=== PATIENT | female | born 1985 | race Caucasian/White ===

== ENCOUNTER 2025-07-25 06:42 | Outpatient (CLI) | payer BC, SELFPAY ==
--- OUTSIDE RECORDS SUMMARY | 2025-07-04 23:59 | XMS_ITS | Continuity of Care Document ---
Author Organization [facility] Address [address] [place] [address]- Care Team Providers Care Sld Educational Aide Name Role Phone JOSEPHINE DELUNA Primary Care Physician Encounter [facility] [id number] Date(s): 07/04/25 - 07/04/[address] [address]- [place] Discharge Disposition: OP Self Care or Home Attending Physician: KRUNAL PATEL NP-FAM Admitting Physician: KRUNAL PATEL NP-FAM Referring Physician: KRUNAL PATEL NP-FAM Encounter Type: Outpatient S Assessment and Plan Diagnostic Tests Pending * CAMP Enhanced Liver Fibrosis (ELF) Score - [facility] 07/04/25 Results Laboratory List Name Date CBC w/ Auto Diff 07/04/25 CMP Comprehensive Metabolic Panel 07/04/25 Hepatitis Acute Panel 07/04/25 .Automated Differential 07/04/25 Most recent to oldest [Reference Range]: 1 eGFR [>=60 mL/min/1.73m2] 92 mL/min/1.73 m2 1 (07/04/25 12:44 PM) Sodium Level [136-145 mmol/L] 135 mmol/L *LOW* (07/04/25 12:44 PM) Potassium Level [3.5-5.1 mmol/L] 3.6 mmo l/L (07/04/25 12:44 PM) Chloride Level [98-110 mmol/L] 102 mmol/ L (07/04/25 12:44 PM) Carbon Dioxide Level [21-31 mmol/L] 24 m mol/L (07/04/25 12:44 PM) Anion Gap [2.0-11.0] 9.0 (07/04/25:44 PM) WBC [4.0-10.8 x10(3)/uL] 7.4 x10(3)/uL (07/04/25 12:44 PM) RBC [3.77-5.16 x10(6)/uL] 4.64 x10(6)/uL (07/04/25 12:44 PM) Hct [35.0-45.0 %] 40.8 % (07/04/25:44 PM) Hgb [12.0-16.0 Gram/dL] 13.6 Gram/dL (07/04/25:44 PM) Platelet Count [140-420 x10(3)/uL] 333 x 10(3)/uL (07/04/25:44 PM) MCH [25.6-32.2 pg] 29.2 pg (07/04/25:44 PM) MCHC [32.3-36.5 Gram/dL] 33.2 Gram/dL (07/04/25:44 PM) MCV [79.4-94.8 fL] 87.8 fL (07/04/25:44 PM) Bilirubin Total [0.3-1.0 mg/dL] 0.4 mg/d L (07/04/25: PM) A/G Ratio [1.0-2.5] 1.4 (07/04/25:44 PM) ALT [<=24 Units/Liter] 21 Units/Liter (07/04/25:44 PM) AST [13-39 Units/Liter] 24 Units/Liter (07/04/25 12:44 PM) Globulin [2.0-3.5 Gram/dL] 3.1 Gram/dL (07/04/25:44 PM) Alk Phos [34-104 Units/Liter] 117 Units/ Liter *HI* (07/04/25 12:44 PM) Bun/Creatinine [6.0-22.0] 13.3 (07/04/25 12:44 PM) Calcium Level [8.6-10.2 mg/dL] 8.9 mg/dL (8/5/25 12:44 PM) Glucose Level [74-109 mg/dL] 77 mg/dL (07/04/25 12:44 PM) Hep C AB [Nonreactive] Nonreactive (07/04/25 12:44 PM) Blood Urea Nitrogen [7-25 mg/dL] 11 mg/d L (07/04/25 12:44 PM) Slide Review None *NA* (07/04/25 12:44 PM) Eos % [0.0-7.0 %] 1.7 % (07/04/25 12:44 PM) Sumner # [0.0-1.0 x10(3)/uL] 0.5 x10(3)/uL (07/04/25 12:44 PM) Eos # [0.0-0.7 x10(3)/uL] 0.1 x10(3)/uL (07/04/25 12:44 PM) Sumner % [2.0-12.0 %] 6.9 % (07/04/25 12:44 PM) Baso % [0.0-3.0 %] 0.9 % (07/04/25 12:44 PM) Hep B Surf AG [Nonreactive] Nonreactive (07/04/25 12:44 PM) Baso # [0.0-0.3 x10(3)/uL] 0.1 x10(3)/uL (07/04/25 12:44 PM) RDW [11.0-15.5 %] 13.5 % (07/04/25 12:44 PM) Neut % [34.0-75.0 %] 65.3 % (07/04/25 12:44 PM) Protein Total [6.4-8.9 Gram/dL] 7.5 Gram /dL (07/04/25 12:44 PM) Neut # [1.5-7.1 x10(3)/uL] 4.8 x10(3)/uL (07/04/25 12:44 PM) Albumin Level [3.5-5.2 Gram/dL] 4.4 Gram /dL (07/04/25 12:44 PM) Lymph % [17.0-53.0 %] 25.2 % (07/04/25 12:44 PM) Hep B Core AB IgM [Nonreactive] Nonreact watson (07/04/25 12:44 PM) Hep A IgM AB [Nonreactive] Nonreactive (07/04/25 12:44 PM) Lymph # [1.0-3.5 x10(3)/uL] 1.9 x10(3)/u L (07/04/25 12:44 PM) MPV [8.7-12.0 fL] 7.1 fL *LOW* (07/04/25 12:44 PM) Creatinine Level [0.60-1.20 mg/dL] 0.83 mg/dL (07/04/25 12:44 PM) 1Interpretive Data: eGFR calculation performed using the CKD-EPI 2020 equation (race variable excluded) Patient Care team information Care Team Personnel Name: JOSEPHINE DELUNA APRN-FAM Position: [place] Referring Provider - No Access Member Role: Primary Care Physician Address: [address] [place] [phone] Telecom: Care Team Related Persons Name: NONE, NONE
--- OUTSIDE RECORDS SUMMARY | 2025-07-10 09:00 | XMS_ITS ---
Author Organization [facility] Address [address] [place] [address] Care Team Providers Care Electroencephalogram Technologist Name Role Phone [facility] Primary Care Provider Ju Mooney [facility] [phone] REASON FOR VISIT Tuberculosis (TB) / PPD Test Medications Medication SIG (Take, Route, Frequency, Duration) Notes Start Date End Date Status Vitamin B Complex - 1 tab(s) orally once a day Active Probiotic Formula 1-250 BILLION-MG 1 cap(s) orally once a day Active Sertraline HCl 50 MG 1 tab(s) orally onc e a day Active Stahist AD 25-60 MG 1 tab(s) orally ever y 8 hours 12/20/2019 Not-Taking Desogestrel-Ethinyl Estradiol 0.15-30 MG-MCG 1 tab(s) orally once a day APRI BCP Active Flonase Allergy Relief 50 MCG/ACT as directed intranasally once a day; Duration: 30 day(s) 12/20/2019 Not-Taking Acyclovir 800 MG 1 tablet Orally 5 ti mes a day; Duration: 7 days 12/06/2024 Active Singulair 10 MG 1 tablet Orally Once a day as needed Active ZyrTEC Allergy 10 MG 1 tab(s) orally onc e a day Active Immunizations Vaccine Route Administration Date Status Comme nts PPD Aplisol ID Intradermal 07/10/2025 Administered Encounters Encounter Location Date Provider Diagnosis [facility] [address] [place] [address] 07/10/2025 Ju Cummings PPD screening test Z11.1 Assessments Encounter Date Diagnosis (ICD Code) Assessment Notes Treatment Notes Treatment Clinical Notes Section Notes 07/10/2025 PPD screening test (ICD-10 - Z11.1) Patient reports they have never had a positive ppd reaction. Plan Of Treatment Treatment Notes Assessment Notes PPD screening test Patient reports they have never had a positive ppd reaction. Next Appt Details Follow Up: Please return to the clinic within 48-72 hours during the hours of business, Reason: Progress Notes * Ludmila ALCANTARA MDOB:[birth year] (40 yo F)Acc No.[id number]:07/10/2025 Progress Notes Patient: Ludmila GARDNER Provider: Juan Cummings APRN :1985 A ge:40 Y S ex:Female Date:07/10/2025 External Visit ID:[id number] Address:[address] [place] [address] [id number] Pcp:[facility] Subjective: * Chief Complaints: * 1 . Tuberculosis (TB) / PPD Test. * Medical History: * Medications: T aking Singulair 10 MG Tablet 1 tablet Orally Once a day , Notes to Pharmacist: as needed, Taking ZyrTEC Allergy 10 MG Tablet 1 tab(s) orally once a day , Taking Desogestrel-Ethinyl Estradiol 0.15-30 MG-MCG Tablet 1 tab(s) orally once a day , Notes to Pharmacist: ANGELESI BCP, Taking Vitamin B Complex - Tablet 1 tab(s) orally once a day , Taking Probiotic Formula 1-250 BILLION-MG Capsule 1 cap(s) orally once a day , Taking Sertraline HCl 50 MG Tablet 1 tab(s) orally once a day , Taking Acyclovir 800 MG Tablet 1 tablet Orally 5 times a day , Not-Taking Stahist AD 25-60 MG Tablet 1 tab(s) orally every 8 hours , Not-Taking Flonase Allergy Relief 50 MCG/ACT Suspension as directed intranasally once a day Objective: * Vitals: Assessment: * Assessment: 1. P PD screening test - Z11.1 (Primary) Plan: * Treatment: * Immunizations: PPD Aplisol : 0.1 mL (Dose No:1) (Route: Intradermal) given by Ju Cummings APRN on Right Lower Forearm (PPD screening test) * Procedure Codes: 8 6580 TB SKIN TEST (APLISOL) * Follow Up: P lease return to the clinic within 48-72 hours during the hours of business * Billing Information: * Visit Code: * Procedure Codes: 87005 TB SKIN TEST (APLISOL). Care Plan Details* Images * 07/10/25 DL & INS 07/10/25 DL & INS * Sign off status: Completed true * Provider: Juan Cummings APRN Date: 07/10/2025 Generated for Bhavesh kim/Matthew/Jesiitting on: 0 07/25/2025 05:44 AM CDT
--- OUTSIDE RECORDS SUMMARY | 2025-07-12 12:00 | XMS_ITS ---
Author Organization [facility] Address [address] [place] [address] Care Team Providers Care Triage Clinician Name Role Phone [facility] Primary Care Provider Arlin Gutierres Unavailable [phone] REASON FOR VISIT Tuberculosis (TB) / PPD Test Encounters Encounter Location Date Provider Diagnosis [facility] [address] [place] [address] 07/12/2025 Arlin Cristina PPD screening test Z11.1 Assessments Encounter Date Diagnosis (ICD Code) Assessment Notes Treatment Notes Treatment Clinical Notes Section Notes 07/12/2025 PPD screening test (ICD-10 - Z11.1) Document patient's PPD results in their immunization history and import PPD results from the right chart panel (ICW). Scan PPD result form into patient's chart. Plan Of Treatment Next Appt Details Follow Up: As needed, Reason : Progress Notes * Ludmila ALCANTARA MDOB:[birth year] (40 yo F)Acc No.[id number]:07/12/2025 Progress Notes Patient: N Ludmila GUILLERMO Provider: Saud Cristina APRN :1985 A ge:40 Y S ex:Female Date:07/12/2025 External Visit ID:[id number] Address:[id number] Pcp:[facility] Subjective: * Chief Complaints: * 1 . Tuberculosis (TB) / PPD Test. * HPI: P PD Skin Test: Patient presents for a PPD skin test read. PPD Skin Test Results I mpression N egative, I nduration 0 mm, D ate 0 07/12/2025. * ROS: C ONSTITUTIONAL: feels well y es. * Medical History: Objective: * Vitals: * Examination: F ocused Exam: GENERAL: a lert and oriented x 4, no acute distress, dress appropriate for the environment & temp, well-groomed, appears well. Assessment: * Assessment: 1. P PD screening test - Z11.1 (Primary) Plan: * Treatment: * Immunizations: PPD Aplisol (READING) Negative, Induration: 0 mm, Placement Date: 07/10/2025, Read by: Arlin Cristina on 07/12/2025 at 6:44 PM (PPD screening test) * Follow Up: A s needed * Billing Information: * Visit Code: 62293 Office Visit, Est Pt., Level 1. * Procedure Codes: Care Plan Details* Images * id in 07.12.25 pdd results 07.12.25 * Sign off status: Completed true * Provider: Saud Cristina APRN Date: 07/12/2025 Generated for Bhavesh kim/Matthew/eTransmitting on: 07/25/2025 05:44 AM CDT History and Physical Notes * HPI (History of Present Illness) Category Sub-Category Detail Notes Category Not es PPD Skin Test PPD Skin Test Results Impression: Negative Induration: 0 mm Date: 07/12/2025 Examination Category Sub-Category Detail Notes Category Not es Focused Exam GENERAL: alert and orient ed x 4, no acute distress, dress appropriate for the environment & temp, well-groomed, appears well
--- OUTSIDE RECORDS SUMMARY | 2025-07-25 06:44 | XMS_ITS | Clinical Summary ---
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 0 Active cholecalcifero l (Vitamin D-3) 25 MCG (1000 UT) capsule Take by mouth 1 (one) time each day. Active azelastine (Astelin) 0.1 % nasal spray Administer 1 spray into each nostril 2 (two) times a day. Use in each nostril as directed 30 mL 12 4 Active Additional Information Patient not taking.Reported on 05/09/2025 Symbicort 80-4.5 MCG/ACT inhaler 4 Active Bacillus Coagulans-Inul in (Probiotic) 1-250 BILLION-MG capsule daily. Active Singulair 10 MG tablet Take 10 mg by mouth every night. Active Apri 0.15-30 MG-MCG tablet TAKE 1 TABLET BY MOUTH DAILY 84 tablet 1 5 Active triazolam (Halcion) 0.25 MG tablet 5 Active sertraline (Zoloft) 100 MG tablet TAKE 1 TABLET BY MOUTH DAILY 90 tablet 5 Active Semaglutide-We ight Management (Wegovy) 0.5 MG/0.5ML solution auto-injectorI ndications:Obe sity Inject 0.5 mL under the skin 1 (one) time per week. Indications: OBESITY 2 mL 5 Active ondansetron (Zofran) 4 MG tablet Take 1 tablet by mouth every 8 (eight) hours if needed for nausea or vomiting. 20 tablet 5 Active ondansetron (Zofran) 4 MG tablet Take 4 mg by mouth every 8 (eight) hours if needed for nausea or vomiting. 07/21/20 25 Discontin ued(Reord er) Active Problems Problem Noted Date Diagnosed Date Hypertriglyceridemia 01/20/2025 Elevated blood pressure reading 01/20/2025 BMI 45 to 49.9 12/15/2024 Morbid (severe) obesity due to excess calories 0 12/15/2024 Contraception care 01/22/2022 Lymphadenopathy 10/15/2021 Chronic diarrhea 09/03/2021 Encounter for adult health aintenance examination without abnormal finding 09/03/2021 Elevated C-reactive protein (CRP) 09/03/2021 Vitamin D deficiency 02/11/2021 Diarrhea 02/11/2021 Allergic rhinitis 01/22/2018 Overview (02/11/2021): Description: (PL) Asthma 01/22/2018 Overview (02/11/2021): Description: (PL) Dyslipidemia 01/21/2018 Weight gain 01/21/2018 Anxiety 11/19/2017 Encounters Date Type Department Care Team Description 07/21/2025 Orders Only [facility] - [address] [place] [address] Tammi Edward APRN 07/04/2025 Travel 06/23/2025 Orders Only [facility] - [address] [place] [address] Tammi Edward APRN Other obesity due to excess calories (Primary Dx) 05/18/2025 Orders Only [facility] - [address] [place] [address] Tammi Edward APRN Hepatomegaly (Primary Dx); Cholelithiasis without obstruction 05/18/2025 Results Follow-Up [facility] - [address] [place] [address] Tammi Edward APRN US abdomen limited liver 05/11/2025 Telephone [facility] - [address] [place] [address] Tammi Edward APRN US 05/1605/10/2025 Orders Only [facility] - [address] [place] [address] Tammi Edward APRN Liver enzymes level above reference range (Primary Dx) 05/10/2025 Results Follow-Up [facility] - [address] [place] [address] Tammi Edward APRN CBC and differential, Comprehensive metabolic panel, TSH W/ REFLEX TO FREE T4, Additional followed-up results: 2 05/09/2025 1:20 PM EDT Office Visit [facility] [address] [place] [address] Tammi Edward APRN Other obesity due to excess calories (Primary Dx); Urine looks dark 05/09/2025 Travel 04/28/2025 Refill [facility] - [address] [place] [address] Tammi Edward APRN from Last 3 Months Immunizations Immunization Administration Dates Next Due Influenza MDCK, Quad PF (Flucelvax) 09/03/2021 Influenza, injectable, quadrivalent 07/31/2019 Influenza, quadrivalent PF ( fluarix, Afluria, Flulaval, Fluzone) 08/21/2020 Moderna COVID-19 MRNA Vaccin e 100 or 50mcg (Spikevax) 10/11/2021,01/25/2021,12/28/2020 Pfizer Bivalent ([id number] + Ba.4/ba.5) Covid-19 Vaccine 02/06/2023 Tdap 12/31/2012 Social History Tobacco Use Types Packs/Day Years Used Date Smoking Tobacco: Never Smokeless Tobacco: Never Tobacco Cessation:Counseling Given: Not Answered Alcohol Use Standard Drinks/Week Comments Yes 0 (1 standard drink = 0.6 oz pur e alcohol) [facility] Utilities Answer Date Recorded In the past 12 months has e [employer], [employer], or water [employer] threatened to shut off services in your home? No 01/20/2025 Overall Financial Resource Strain (CARDIA) Answe r Date Recorded How hard is it for you to pa y for the very basics like food, housing, medical care, and heating? Hard 01/20/2025 Hunger Vital Sign Answer Date Recorded Within the past 12 months, y ou worried that your food would run out before you got the money to buy more. Never true 01/20/20 25 Within the past 12 months, t he food you bought just didn't last and you didn't have money to get more. Never true 01/20/2025 PRAPARE - Transportation Answer Date Re corded In the past 12 months, has l ack of transportation kept you from medical appointments or from getting medications? No 01/01 In the past 12 months, has l ack of transportation kept you from meetings, work, or from getting things needed for daily living? No 01/20/2025 Housing Stability Vital Sign Answer Ulices e Recorded In the last 12 months, was t here a time when you were not able to pay the mortgage or rent on time? Yes 01/20/2025 In the past 12 months, how m any times have you moved where you were living? 1 01/20/2025 At any time in the [facility], were you homeless or living in a care home (including now)? No 01/20/2025 Depression Answer Date Recorded PHQ-2 Total Score 2 01/20/2025 Interpersonal Safety Answer Date Record ed How often does anyone, delmi heike family and friends, physically hurt you? Never 01/20/2025 How often does anyone, abelkajal heike family and friends, threaten you with harm? Never 01/20/2025 Education Answer Date Recorded What is the highest level of school you have completed or the highest degree you have received? 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 Not on file Not on file Last Filed Vital Signs Vital Sign Reading Time Taken Comments Blood Pressure 116/72 05/09/2025 1:33 PM EDT Pulse 93 05/09/2025 1:33 PM EDT Temperature 36.6 C (97.8 F) 05/09/2025 1:33 PM EDT Respiratory Rate - - Oxygen Saturation 97% 05/09/2025 1:33 PM EDT Inhaled Oxygen Concentration - - Weight 122 kg (269 lb) 05/09/2025 1:33 PM EDT Height 170.2 cm (5' 7 ) 05/09/2025 1:33 PM EDT Body Mass Index 42.13 05/09/2025 1:33 PM EDT Plan of Treatment Health Maintenance Due Date Last Done Comments HIV Screening 1987 Hepatitis B Screening 2005 Hepatitis A Vaccines (1 of 2 - Risk 2-dose series) 2006 Hepatitis B Vaccines (1 of 3 - 19+ 3-dose series) 2006 Pneumococcal Vaccine (1 of 2 - PCV) 2006 DTaP/Tdap/Td Vaccines (2 - Td or Tdap) 12/31/2022 12/31/2012 Pap Smear 08/21/2023 08/21/2020 COVID-19 Vaccine ( season) 2024 02/06/2023, 10/11/2021, 01/25/2021, Additional history exists Influenza Vaccine (#1) 2025 , 09/10/2023, 08/29/2022, Additional history exists Cervical Cancer Screening 08/21/2025 HPV/Cotest 08/21/2025 08/21/2020, 08/19/2020 Lipid Panel 01/16/2030 01/16/2025, 01/28, 10/19/2023, Additional history exists Zoster Vaccines (1 of 2) 2037 Depression Risk Screening Completed 01/20/2025 SDOH Screening Completed 01/20/2025 BMI Intervention Completed 05/09/2025, , 01/20/2025, Additional history exists Hepatitis C Screening Completed 07/04/2025 HIB Vaccines Aged Out No longer eligi ble based on patient's age to complete this topic HPV Vaccines Aged Out No longer eligi ble based on patient's age to complete this topic IPV Vaccines Aged Out No longer eligi ble based on patient's age to complete this topic MMR Vaccines Discontinued Meningococcal B Vaccine Aged Out No l onger eligible based on patient's age to complete this topic Meningococcal Vaccine Aged Out No brice holden eligible based on patient's age to complete this topic Rotavirus Vaccines Aged Out No longer eligible based on patient's age to complete this topic Varicella Vaccines Discontinued Procedures Procedure Name Priority Date/Time Associated Diagnosis Comments CAMP ENHANCED LIVER FIBROSIS (ELF) SCORE Routine 07/04/2025 12:44 PM EDT HEPATITIS PANEL, ACUTE Routine 12:44 PM EDT CMP COMPREHENSIVE METABOLIC PANEL Routine 07/04/2025 12:44 PM EDT AUTODIFF Routine 07/04/2025 12:44 PM EDT CBC AND DIFFERENTIAL Routine 07/04/2025 12:44 PM EDT US ABDOMEN LIMITED LIVER STAT 05/16/2025 8:08 AM EDT Liver enzymes level above reference range URINE CULTURE Routine 05/09/2025 3:13 PM EDT Urine looks dark POCT URINALYSIS DIPSTICK Routine 05/09/2025 2:24 PM EDT Urine looks dark AMYLASE AND LIPASE Routine 05/09/2025 2: 16 PM EDT Other obesity due to excess calories Urine looks dark TSH W/ REFLEX TO FREE T4 Routine 05/09/2025 2:16 PM EDT Other obesity due to excess calories CMP COMPREHENSIVE METABOLIC PANEL Routine 05/09/2025 2:16 PM EDT Other obesity due to excess calories CBC AND DIFFERENTIAL Routine 05/09/2025 2:16 PM EDT Other obesity due to excess calories LIPID PANEL Routine 01/16/2025 8:10 AM EST Morbid (severe) obesity due to excess calories (CMS/HCC) THINPREP TIS PAP W/REFL HOV RNA HR E6/E7, TMA Routine 08/21/2020 10:45 AM EDT from Last 3 Months or Most Recently Relevant to Health Maintenance Results * CAMP Enhanced Liver Fibrosis (ELF) Score (07/04/2025 12:44 PM EDT) ENHANCED LIVER FIBROSIS$(ELF) SCORE 7.63 <9.80 07/13/2025 1:00 AM EDT [facility] SS Comment: ELF score ranges and associated risk of disease progression (development of cirrhosis or liver-related events): < 9.80 Lower > or = 9.80 - <11.30 Mid > or = 11.30 Higher In the Mid group, the risk of disease progression is similar to the pre-test risk. Pre-test risk refers to the likelihood of disease progression in the overall intended use population without considering the ELF score. Results should always be interpreted in conjunction with the patient's medical history, clinical presentation, and other findings. ELF results > or = 7.7 may suggest the need for further specialized assessment, based on expert opinion, as noted in the AASLD 2023 NAFLD practice guidance figure 2 algorithm. Reference: Jesse TAYLOR et al. Hepatology. 202;77:1295-1382. https://doi.org/10.1097/HEP.[email or web address] For additional test details, please visit: TestDirectory.[facility] For additional NAFLD resources, please visit: [email or web address]/NAFLD Test performed by [facility] [address] [place] [address] Sky Cap: Fallon Murillo MD,PHD,SANTANA Test Reported by Julio Delcid, [facility], [address] [place] [address] Justin Richardson M.D., Ph.D., Director of Laboratories , [place] [id number] Lab test performed by: Lab Mnemonic: [facility] [address] [place], [place] Justin Richardson MD PhD Blood Venous Draw / Unknown 07/04/2025 12:44 PM EDT 07/04/2025 12:51 PM EDT [facility] - 07/13/2025 1:00 AM EDT Performed by [facility], [address] [place] [address], [place] [id number] [place] Debi Rivera NP LAB BLOOD ORDERABLES Final Res ult [facility] [address] [place] [address], [facility] Sendout Bench SS * AUTODIFF (07/04/2025 12:44 PM EDT) NEUT % 65.3 34.0 - 75.0 % 07/04/2025 12:55 PM [facility] LYMPH % 25.2 17.0 - 53.0 % 07/04/2025 12:55 PM [facility] MONO % 6.9 2.0 - 12.0 % 07/04/2025 12:55 PM [facility] EOS % 1.7 0.0 - 7.0 % 07/04/2025 12:55 PM [facility] BASO % 0.9 0.0 - 3.0 % 07/04/2025 12:55 PM [facility] NEUT # 4.8 1.5 - 7.1 x10(3)/ul 07/04/2025 12:55 PM [facility] LYMPH # 1.9 1.0 - 3.5 x10(3)/ul 07/04/2025 12:55 PM [facility] MONO # 0.5 0.0 - 1.0 x10(3)/ul 07/04/2025 12:55 PM [facility] EOS # 0.1 0.0 - 0.7 x10(3)/ul 07/04/2025 12:55 PM [facility] BASO # 0.1 0.0 - 0.3 x10(3)/ul 07/04/2025 12:55 PM EDT [facility] Blood Venous Draw / Unknown 07/04/2025 12:44 PM EDT 07/04/2025 12:51 PM EDT [facility] - 07/04/2025 12:55 PM EDT Ordered by Discern Expert. Performed by [facility], [address] [place] [address], [place] [address] Debi Rivera ORACLE DATA WAREHOUSE DEVELOPER LAB BLOOD ORDERABLES Final Res ult [facility] [address] [place] [address], [place] * Hepatitis panel, acute (07/04/2025 12:44 PM EDT) Pathologist [facility] HEP A IGM AB NONREACTIVE Nonreactive 07/04/2025 3:05 PM EDT [facility] Rem 2.0 Hepatitis B Surface Ag NONREACTIVE Nonreactive 07/04/2025 3:05 PM EDT [facility] Rem 2.0 Hep B Core IgM NONREACTIVE Nonreactive 07/04/2025 3:05 PM EDT [facility] Rem 2.0 Hep C Virus Ab NONREACTIVE Nonreactive 07/04/2025 3:05 PM EDT [facility] Rem 2.0 Blood Venous Draw / Unknown 07/04/2025 12:44 PM EDT 07/04/2025 2:25 PM EDT [facility] - 07/04/2025 3:05 PM EDT Performed by [facility], [address] [place] [address], [place] [address] Debi Rivera ORACLE DATA WAREHOUSE DEVELOPER LAB BLOOD ORDERABLES Final Res ult Performing Organization Address City/[facility]/ZIP Co de Phone Number [facility] [address] [place] [address], [facility] Rem 2.0 Pathology Department [address] [place] [address] * (ABNORMAL) CBC With Differential (07/04/2025 12:44 PM EDT) Only the most recent of2 resultswithin the time period is included. WBC 7.4 4.0 - 10.8 x10(3)/ul 07/04/2025 12:55 PM [facility] RBC 4.64 3.77 - 5.16 x10(6)/ul 07/04/2025 12:55 PM [facility] HGB 13.6 12.0 - 16.0 Gram/dL 07/04/2025 12:55 PM [facility] Hematocrit 40.8 35.0 - 45.0 % 07/04/2025 12:55 PM [facility] MCV 87.8 79.4 - 94.8 fL 07/04/2025 12:55 PM [facility] MCH 29.2 25.6 - 32.2 pg 07/04/2025 12:55 PM [facility] MCHC 33.2 32.3 - 36.5 Gram/dL 07/04/2025 12:55 PM [facility] RDW 13.5 11.0 - 15.5 % 07/04/2025 12:55 PM [facility] Platelets 333 140 - 420 x10(3)/ul 07/04/2025 12:55 PM [facility] MPV 7.1(L) 8.7 - 12.0 fL 07/04/2025 12:55 PM [facility] SLIDE REVIEW NONE 07/04/2025 12:55 PM [facility] Blood Venous Draw / Unknown 07/04/2025 12:44 PM EDT 07/04/2025 12:51 PM Health system LAB - 07/04/2025 12:55 PM EDT Performed by [facility], [address] [place], [place] [id number] us Debi Rivera NP LAB BLOOD ORDERABLES Final Res ult [facility] [address] [place] [address], * (ABNORMAL) Comprehensive metabolic panel (07/04/2025 12:44 PM EDT) Only the most recent of2 resultswithin the time period is included. Sodium 135(L) 136 - 145 mmol/L 07/04/2025 1:13 [facility] Potassium 3.6 3.5 - 5.1 mmol/L 07/04/2025 1:13 [facility] Chloride 102 98 - 110 mmol/L 07/04/2025 1:13 [facility] CO2 24 21 - 31 mmol/L 07/04/2025 1:13 [facility] Anion Gap 9.0 2.0 - 11.0 07/04/2025 1:13 [facility] Calcium 8.9 8.6 - 10.2 mg/dL 07/04/2025 1:13 [facility] Glucose 77 74 - 109 mg/dL 07/04/2025 1:13 [facility] BUN 11 7 - 25 mg/dL 07/04/2025 1:13 [facility] Creatinine 0.83 0.60 - 1.20 mg/dL 07/04/2025 1:13 [facility] BUN/Creatinine Ratio 13.3 6.0 - 22.0 07/04/2025 1:13 [facility] Albumin 4.4 3.5 - 5.2 Gram/dL 07/04/2025 1:13 [facility] Total Protein 7.5 6.4 - 8.9 Gram/dL 07/04/2025 1:13 [facility] A/G Ratio 1.4 1.0 - 2.5 07/04/2025 1:13 [facility] Alkaline Phosphatase 117(H) 34 - 104 Units/Lite r 07/04/2025 1:13 [facility] ALT (SGPT) 21 <=24 Units/Lite r 07/04/2025 1:13 [facility] AST 24 13 - 39 Units/Lite r 07/04/2025 1:13 [facility] Total Bilirubin 0.4 0.3 - 1.0 mg/dL 07/04/2025 1:13 [facility] Globulin, Total 3.1 2.0 - 3.5 Gram/dL 07/04/2025 1:13 [facility] EGFR 92 >=60 mL/min/1.7 3m2 07/04/2025 1:13 PM EDT [facility] Comment:eGFR calculation per formed using the CKD-EPI 2020 equation (race variable excluded) Blood Venous Draw / Unknown 07/04/2025 12:44 PM EDT 07/04/2025 12:51 PM EDT Narrative [facility] - 07/04/2025 1:13 PM EDT Performed by [facility], [address] [place] [address], [facility] [id number] [place] Debi Rivera [employer] WAREHOUSE DEVELOPER LAB BLOOD ORDERABLES Final Res ult [facility] [address] [place] [address], [place] * US abdomen limited liver (05/16/2025 8:08 AM EDT) Anatomical Region Laterality Modality Abdomen, Liver Ultrasound Other 05/16/2025 8:08 AM EDT Narrative 05/16/2025 8:32 AM EDT INDICATION: Elevated liver function tests COMPARISON: Abdominal ultrasound 10/21/2023 FINDINGS: PANCREAS: Visualized portions of the pancreas are within normal limits. LIVER: The liver is mildly enlarged measuring 18 cm in length. The background echogenicity echotexture is within normal limits.. No hepatic mass. The intrahepatic bile ducts are normal in caliber. The common duct is normal in size at the mann hepatis measuring 3 mm. GALLBLADDER: Shadowing gallstones are identified in the gallbladder. No gallbladder distention, gallbladder wall thickening, or pericholecystic fluid. RIGHT KIDNEY: The right kidney measures 11.2 cm. Renal cortical thickness and echogenicity is normal. No hydronephrosis. OTHER: No ascites. IMPRESSION: 1. Cholelithiasis. No ultrasound evidence of acute cholecystitis. 2. Mild hepatomegaly. Dictated by: Corazon Allen MD Signed by Corazon Allen MD on 05/16/2025 8:30 ##### Final ##### Dictated by: CORAZON ALLEN MD-RAD Dictated DT/TM: 05/16/2025 8:30 am Interpreted and electronically signed by: CORAZON ALLEN MD-RAD Signed DT/TM: 05/16/2025 8:30 am Procedure Note Corazon Allen MD - 05/16/2025 INDICATION: Elevated liver function tests COMPARISON: Abdominal ultrasound 10/21/2023 FINDINGS: PANCREAS: Visualized portions of the pancreas are within normal limits. LIVER: The liver is mildly enlarged measuring 18 cm in length. Thebackground echogenicity echotexture is within normal limits.. No hepaticmass. The intrahepatic bile ducts are normal in caliber. The common ductis normal in size at the mann hepatis measuring 3 mm. GALLBLADDER: Shadowing gallstones are identified in the gallbladder. Nogallbladder distention, gallbladder wall thickening, or pericholecysticfluid. RIGHT KIDNEY: The right kidney measures 11.2 cm. Renal cortical thicknessand echogenicity is normal. No hydronephrosis. OTHER: No ascites. IMPRESSION: 1. Cholelithiasis. No ultrasound evidence of acute cholecystitis. 2. Mild hepatomegaly. Dictated by: Corazon Allen MD Signed by Corazon Allen MD on 58:30 ##### Final ##### Dictated by: CORAZON ALLEN MD-RAD Dictated DT/TM: 05/16/2025 8:30 am Interpreted and electronically signed by: CORAZON ALLEN MD-RAD Signed DT/TM: 05/16/2025 8:30 am Tammi Edward APRN [facility] US PROCEDURES Final Result * Urine culture (clean catch) (05/09/2025 3:13 PM EDT) Urine Culture SEE NOTE [facility] Comment: CULTURE, URINE, ROUTINE Micro Number: [id number] Test Status: Final Specimen Source: Urine Specimen Quality: Adequate Result: Mixed genital joel isolated. These superficial bacteria are not indicative of a urinary tract infection. No further organism identification is warranted on this specimen. If clinically indicated, recollect clean-catch, mid-stream urine and transfer immediately to Urine Culture Transport Tube. Urine Urine specimen obtained by clean catch procedure / Unknown 05/09/2025 3:13 PM EDT 05/09/2025 8:08 PM EDT Narrative Resulting Agency Comment Performing Organization Information: Site ID: [id number] Name: [facility] Address: [address] [place], [place] [id number] Director: Orestes Restrepo Tammi Ewdard APRN LAB MICROBIOLOGY - GENERAL ORD ERABLES Final Result Performing Organization Address City/[facility]/ZIP Co de Phone Number [place] [address], * (ABNORMAL) POCT Urinalysis dipstick (05/09/2025 2:24 PM EDT) Pathologist [facility] COLOR, POC Yellow Clarity, UA Clear Clear Glucose, UA Negative Negative, Not Found Bilirubin, UA Small(A) Negative Ketones, Urine Negative other, Negative mg/dL Specific [place], Urine 1.025 1.010, 1.015, 1.020, 1.025 BLOOD, POC Negative Negative pH, UA 6.0 5.0 - 8.0 Protein, UA Positive(A) Negative Comment:30 mg/dL Urobilinogen, UA 1.0 Nitrite, UA Negative Negative Leukocytes, UA Small(A) Negative Urine 05/09/2025 2:24 PM EDT Tammi Edward APRN POINT OF CARE TEST ENTER/EDIT ORDERABLES Final Result * AMYLASE AND LIPASE (05/09/2025 2:16 PM EDT) Pathologist [facility] Amylase 31 21 - 101 U/L [facility] Lipase 16 7 - 60 U/L [facility] 05/09/2025 2:16 PM EDT 05/09/2025 8:09 PM EDT Narrative Resulting Agency Comment Performing Organization Information: Site ID: [id number] Name: [facility] Address: [address] [place] [id number] Director: Orestes Restrepo Tammi Edward APRN LAB BLOOD ORDERABLES Final Res ult [place] [address], [place] * TSH W/ REFLEX TO FREE T4 (05/09/2025 2:16 PM EDT) Pathologist [facility] TSH W/REFLEX TO FT4 1.90 mIU/L [facility] Comment: Reference Range > or = 20 Years 0.40-4.50 Ranges First trimester 0.26-2.66 Second trimester 0.55-2.73 Third trimester 0.43-2.91 Blood 05/09/2025 2:16 PM EDT 05/09/2025 8:09 PM EDT Narrative Resulting Agency Comment Performing Organization Information: Site ID: [id number] Name: [facility] Address: [address] [place] [phone] Director: Orestes Restrepo Tammi Edward APRN LAB BLOOD ORDERABLES Final Res ult Performing Organization Address [facility] de Phone Number [place] [address], * (ABNORMAL) Lipid panel (01/16/2025 8:10 AM EST) TRIGLYCERIDES 312(H) <=149 mg/dL [facility] CHOLESTEROL, TOTAL 217(H) <=199 mg/dL [facility] HDL CHOLESTEROL 59 40 - 60 mg/dL [facility] LDL-CHOLESTEROL 95.6 <=188.0 mg/dL [facility] CHOL/HDLC RATIO 3.68 0.00 - 4.49 Ratio [facility] CHOLESTEROL VLDL CALCULATION 62 mg/dL [facility] LDL/HDL RATIO 1.62 Ratio [facility] Blood Venous blood specimen / Unknown 01/16/2025 8:10 AM EST 01/16/2025 1:24 PM EST Narrative Resulting Agency Comment Performing Organization Information: Site ID: [id number] Name: [facility] Address: [address] [place] [phone] Director: Dr. David Stein Tammi Edward APRN LAB BLOOD ORDERABLES Final Res ult Performing Organization Address [facility] Co de Phone Number [email or web address] [address], * THINPREP TIS PAP W/REFL HOV RNA HR E6/E7, TMA (08/21/2020 10:45 AM EDT) Source Cervix BROOM [facility] Clinical Information None given [facility] LMP 3 WEEKS [facility] Pap 3 YEARS [facility] Core Biopsy NA [facility] Specimen Adequacy Satisfactory for evaluation. Endocervical/saez sformation zone component absent. [facility] Interpretation Negative for intraepithelial lesion or malignancy. [facility] Comment This Pap test has been evaluated with computer assisted technology. [facility] CHIEF BUILDING INSPECTOR COCO ROGERS(ASCP) CT Screening location: [address] [address] [facility] COMMENT: EXPLANATORY NOTE: The Pap is a screening test for cervical cancer. It is not a diagnostic test and is subject to false negative and false positive results. It is most reliable when a satisfactory sample, regularly obtained, is submitted with relevant clinical findings and history, and when the Pap result is evaluated along with historic and current clinical information. [facility] 08/21/2020 10:4 5 AM EDT us Lindsey Alvarado ORACLE DATA WAREHOUSE DEVELOPER LAB CYTOLOGY ORDERABLES Final Result [address] from Last 3 Months or Most Recently Relevant to Health Maintenance Insurance [employer] Care Teams Musical Instruments Assembler Relationship Specialty Start Date End Date Tammi Edward APRN [address] [place] [address] LAKSHMI AMIN [address] [place] [address] PCP - General Family Medicine 12/08/24
--- OUTSIDE RECORDS SUMMARY | 2025-07-25 06:44 | XMS_ITS | Encounter Summary ---
Author Organization [facility] Address [address] [place] [address] Care Team Providers Care Incinerator Plant Laborer Name Role Phone Tammi Edward APRN Primary Care Provider [phone] Encounter Details Date Type Department Care Team (Late st Contact Info) Description 07/21/2025 Orders Only [facility] - Primary Care [address] [place] [address] Dr Pedro [address] [place] [address] Tammi Edward APRN [address] [place] [address] LAKSHMI AMIN 1 [place] [address] Social History Tobacco Use Types Packs/Day Years Used Date Smoking Tobacco: Never Smokeless Tobacco: Never Alcohol Use Standard Drinks/Week Comments Yes 0 (1 standard drink = 0.6 oz pur e alcohol) [facility] Utilities Answer Date Recorded In the past 12 months has e electric, gas, oil, or water company threatened to shut off services in your [...] any time in the past 12 m [facility], were you homeless or living in a fpc (including now)? No 01/20/2025 Depression Answer Date Recorded PHQ-2 Total Score 2 01/20/2025 Interpersonal Safety Answer Date Record ed How often does anyone, abelkajal heike family and friends, physically hurt you? Never 01/20/2025 How often does anyone, abelkajal burroughs family and friends, threaten you with harm? [...] file Not on file Not on file documented as of this encounter Plan of Treatment Not on file documented as of this encounter Visit Diagnoses Not on filedocumented in this encounter Additional Health Concerns Assessment Noted Time PHQ-9 Depression Total Score: 0 01/22/20 22 8:21 AM EST documented as of this encounter Care Teams Incinerator Plant Laborer Relationship Specialty Start Date End Date Tammi Edward APRN [address] [place] [address] LAKSHMI AMIN [address] [place] [address] PCP - General Family Medicine 12/08/24 documented as of this encounter
--- OUTSIDE RECORDS SUMMARY | 2025-07-25 06:44 | XMS_ITS | Encounter Summary ---
Author Organization [facility] Address [address] [facility] [address] [place] [address] Care Team Providers Care Set Designer Name Role Phone ElizabetheugeneTammi CLARA Primary Care Provider [phone] Encounter Details Date Type Department Care Team (Latest Contact Info) Description 07/04/2025 Travel Social History Tobacco Use Types Packs/Day Years Used Date Smoking Tobacco: Never Smokeless Tobacco: Never Alcohol Use Standard Drinks/Week Comments Yes 0 (1 standard drink = 0.6 oz pur e alcohol) [facility] Utilities Answer Date Recorded In the past 12 months has th e electric, gas, oil, or water company [...] any time in the past 12 m [facility], were you homeless or living in a snf (including now)? No 01/20/2025 Depression Answer Date Recorded PHQ-2 Total Score 2 01/20/2025 Interpersonal Safety Answer Date Record ed How often does anyone, delmi burroughs family and friends, physically hurt you? Never 01/20/2025 How often does anyone, delmi burroughs family and friends, threaten you with [...] documented as of this encounter Care Teams Set Designer Relationship Specialty Start Date End Date Tammi Edward APRN [address] [place] [address] LAKSHMI AMIN [address] [place] [id number] PCP - General Family Medicine 12/08/24 documented as of this encounter
--- OUTSIDE RECORDS SUMMARY | 2025-07-25 06:45 | XMS_ITS | Patient Health Record ---
Author Organization [facility] Address [address] [place] [address] Care Team Providers Care Circuit Rider Name Role Phone [facility] Primary Care Provider Arlin Gutierres Unavailable [phone] Lindsey Martínez Unavailable [phone] Ju Cummings Unavailable [phone] Allergies No Known Allergies Reason For Referral No Information Medications Medication SIG (Take, Route, Frequency, Duration) Notes Start Date End Date Status Flonase Allergy Relief 50 MCG/ACT as directed intranasally once a day; Duration: 30 day(s) 12/20/2019 Not-Taking Acyclovir 800 MG 1 tablet Orally 5 ti mes a day; Duration: 7 days 12/06/2024 Active Vitamin B Complex - 1 tab(s) orally once a day Active Probiotic Formula 1-250 BILLION-MG 1 cap(s) orally once a day Active Sertraline HCl 50 MG 1 tab(s) orally onc e a day Active Stahist AD 25-60 MG 1 tab(s) orally ever y 8 hours 12/20/2019 Not-Taking Singulair 10 MG 1 tablet Orally Once a day as needed Active ZyrTEC Allergy 10 MG 1 tab(s) orally onc e a day Active Desogestrel-Ethinyl Estradiol 0.15-30 MG-MCG 1 tab(s) orally once a day APRI BCP Active Immunizations Vaccine Route Administration Date Status Comme nts PPD Aplisol ID Intradermal 07/01/2024 Administered PPD Aplisol ID Intradermal 07/10/2025 Administered Td: TENIVAC (7yr & older) IM Intramuscular 05/18/2024 Admi nistered z2019 FluBLOK Quad 0.5mL PFS (0.5mL Admin) 18 y/o & older Unknown 09/14/2019 Administered Social History Tobacco Use: Social History Observation Description Date Details (start date - stop date) Never Smoker NA - NA Tobacco Control (Standard) Question Answer Notes Tobacco use: Nonsmoker AUDIT-C (Standard) Question Answer Notes Did you have a drink contain ing alcohol in the past year? Yes How often did you have six o r more drinks on one occasion in the past year? Never (0 point) How many drinks did you have on a typical day when you were drinking in the past year? 1 or 2 drinks (0 point) How often did you have a dri nk containing alcohol in the past year? 2 to 4 times a month (2 points) Points 2 Interpretation Negative Problems Problem Type SNOMED Code ICD Code Onset Dates Problem Status W/U Status Risk Notes Problem Sinusitis (86391145) Sinusitis (J32.9) Active confirmed Problem Anxiety disorder (247840400) Anxiety disorder, unspecified (F41.9) Active confirmed Problem Shingles (9015189) Shingles (B02.9) Active confirmed Problem Eczema (11603201) Eczema (L30.9) Active confirmed Problem Gastro-esophagea l reflux disease without esophagitis (189429208) Gastro-esophagea l reflux disease without esophagitis (K21.9) Active confirmed Problem Vaccination given (332790749) Encounter for immunization (Z23) Active confirmed Problem Elevated blood pressure reading without diagnosis of hypertension (100786891) Elevated blood pressure reading in office without diagnosis of hypertension (R03.0) Active confirmed Vital Signs Temperature 99 degrees Fahrenheit 12/06/2024 Respiratory Rate 16 /min 12/06/2024 Blood pressure diastolic 84 mm Hg 12/06/2024 Blood pressure systolic 122 mm Hg 12/06/2024 Encounters Encounter Location Date Provider Diagnosis [employer] [facility] [address] [address] 12/06/2024 Lindsey Martínez Shingles B02.9 [address] [employer] [facility] [address] [place] [address] 07/10/2025 Ju Cummings PPD screening test Z11.[address] [address] 07/12/2025 Arlin Cristina PPD screening test Z11.1 Assessments Encounter Date Diagnosis (ICD Code) Assessment Notes Treatment Notes Treatment Clinical Notes Section Notes 12/06/2024 Shingles (ICD-10 - B02.9) FU as needed if noimprovement 07/10/2025 PPD screening test (ICD-10 - Z11.1) Patient reports they have never had a positive ppd reaction. 07/12/2025 PPD screening test (ICD-10 - Z11.1) Document patient's PPD results in their immunization history and import PPD results from the right chart panel (ICW). Scan PPD result form into patient's chart. Plan Of Treatment Pending Test Test Name Order Date Influenza Screen(IH) 2017 Insurance Providers Payer Name Payer Address Payer Phone Subscriber Number Group Number Insured Name Patient Relationship to Insured Coverage Start Date Coverage End Date [facility] [address] [place] [address] [id number] Ludmila Alcantara Self - patient is the insured Medical (General) History Medical History History ICD Code Gastro-esophageal reflux disease without esophagitis K21.9 Anxiety disorder, unspecified F41.9 Shingles B02.9 Eczema L30.9 Surgical History Surgery Date(Month/Year) mole removal 1991 toenail 2000 Hospitalization History Reason Date(Month/Year) stomach issues ([place]seas) 2012
--- OUTSIDE RECORDS SUMMARY | 2025-07-25 06:45 | XMS_ITS | Encounter Summary ---
Author Organization [facility] Address [address] [place] [address] Care Team Providers Care Metal Buffer Name Role Phone Tammi Edward APRN Primary Care Provider [phone] Encounter Details Date Type Department Care Team (Late st Contact Info) Description 06/23/2025 Orders Only [facility] - Primary Care [address] [place] [address] Dr Pedro 1 [place] [address] Tammi Edward APRN [address] [place] [address] LAKSHMI AMIN 1 [place] [address] Other obesity due to excess calories (Primary Dx) Social History Tobacco Use Types Packs/Day Years Used Date Smoking Tobacco: Never Smokeless Tobacco: Never Alcohol Use Standard Drinks/Week Comments Yes 0 (1 standard drink = 0.6 oz pur e alcohol) [facility] Utilities Answer Date Recorded In the past 12 months has e [employer], gas, oil, or water [employer] threatened to shut off services in your [...] any time in the past 12 m [facility], were you homeless or living in a long term (including now)? No 01/20/2025 Depression Answer Date [...] documented as of this encounter Visit Diagnoses Diagnosis Other obesity due to excess calories- Primary documented in this encounter Additional Health Concerns Assessment Noted Time PHQ-9 Depression Total Score: 0 01/22/20 22 8:21 AM EST documented as of this encounter Care Teams Metal Buffer Relationship Specialty Start Date End Date Tammi Edward APRN [address] [place] [address] LAKSHMI AMIN 1 [place] [phone] PCP - General Family Medicine 12/08/24 documented as of this encounter
--- OUTSIDE RECORDS SUMMARY | 2025-07-25 06:45 | XMS_ITS | Encounter Summary ---
Author Organization [facility] Address [address] [place] [address] Care Team Providers Care Punch Card Operator Name Role Phone Tammi Edward APRN Primary Care Provider [phone] Encounter Details Date Type Department Care Team (Late st Contact Info) Description 05/10/2025 Results Follow-Up [facility] - Primary Care [address] [place] [address] Dr Pedro [address] [place] [address] Tammi Edward APRN [address] [place] [address] LAKSHMI AMIN [address] [place] [address] CBC and differential, Comprehensive metabolic panel, TSH W/ REFLEX TO FREE T4, Additional followed-up results: 2 Social History Tobacco Use Types Packs/Day Years Used Date Smoking Tobacco: Never Smokeless Tobacco: Never Alcohol Use Standard Drinks/Week Comments Yes 0 (1 standard drink = 0.6 oz pur e alcohol) [facility] Utilities Answer Date Recorded In the past 12 months has [employer], gas, oil, or water [employer] threatened to shut off services in your [...] any time in the past 12 m [facility], were you homeless or living in a [place] health care facility (including now)? No 01/20/2025 Depression Answer Date Recorded PHQ-2 Total Score 2 01/20/2025 Interpersonal Safety Answer Date Record ed How often does anyone, abelkajal heike family and friends, physically hurt you? Never 01/20/2025 How often does anyone, inclkajal burroughs family and friends, threaten you with [...] documented as of this encounter Care Teams Punch Card Operator Relationship Specialty Start Date End Date Tammi Edward APRN [address] [place] [address] LAKSHMI AMIN [address] [place] [id number] PCP - General Family Medicine 12/08/24 documented as of this encounter
--- OUTSIDE RECORDS SUMMARY | 2025-07-25 06:45 | XMS_ITS | Encounter Summary ---
Author Organization [facility] Address [address] [place] [address] Care Team Providers Care Handbag Parts Cutter Name Role Phone Tammi Edward APRN Primary Care Provider [phone] Encounter Details Date Type Department Care Team (Late st Contact Info) Description 05/18/2025 Results Follow-Up [facility] - Primary Care [address] [place] [address] Dr Pedro 1 [place] [address] Tammi Edward APRN [address] [place] [address] LAKSHMI AMIN [address] [place] [address] US abdomen limited liver Social History Tobacco Use Types Packs/Day Years Used Date Smoking Tobacco: Never Smokeless Tobacco: Never Alcohol Use Standard Drinks/Week Comments Yes 0 (1 standard drink = 0.6 oz pur e alcohol) [facility] Utilities Answer Date Recorded In [...] any time in the past 12 m [facility], were you homeless or living in a prison (including now)? No 01/20/2025 Depression Answer Date [...] documented as of this encounter Care Teams Handbag Parts Cutter Relationship Specialty Start Date End Date Tammi Edward APRN [address] [place] [address] LAKSHMI AMIN [address] [place] [address] PCP - General Family Medicine 12/08/24 documented as of this encounter
--- NOTE | 2025-07-25 07:00 | MR_ITS ---
FINAL REPORT TECHNIQUE: Multiplanar multisequence imaging of the abdomen was obtained without contrast. MRCP images were obtained as well. CLINICAL HISTORY: Elevated LFTs/acholic stool/ruq pain. pain worse after eating. Times with dark urine and pale color stools. COMPARISON: None FINDINGS: The liver is homogeneous. There is no focal hepatic lesion. The spleen is mildly enlarged measuring 14 cm in axial dimension. The adrenal glands and pancreas are unremarkable. The kidneys are without mass or hydronephrosis. Limited evaluation of the GI tract is within normal limits. There is no ascites or lymphadenopathy. The gallbladder is present. Small stones are seen within the gallbladder. The common duct is normal in caliber. There is no common duct filling defect or stricture. The pancreatic duct appears normal. IMPRESSION: Gallstones. Normal common duct without filling defect or stricture. Mild splenomegaly. Reviewed, Interpreted and Dictated by Eboni Marie MD Transcribed by Lindsey Menard Authenticated and . [facility]
== END 2025-07-25 23:59 | disposition home or self-care (01) ==
LOC: RAD 06:43
PROVIDERS: Visit Provider Nurse Practitioner Family
DX: K80.20 Calculus of gallbladder without cholecystitis without obstruction (principal); R16.1 Splenomegaly, not elsewhere classified; R74.8 Abnormal levels of other serum enzymes
CPT/HCPCS: 74181; 76376

== ENCOUNTER 2025-11-15 10:33 | Outpatient (CLI) | payer BC, SELFPAY ==
[2025-11-15 11:07] LABS: Hematocrit 42.3 % (37.0-47.0); Hemoglobin 13.7 g/dL (12.2-16.2); Immature Granulocytes % 0.4 %; Mean Corpuscular HGB Conc 32.4 g/dL (31.8-35.4); Mean Corpuscular Hemoglobin 29.0 pg (27.0-31.2); Mean Corpuscular Volume 89.4 fl (81-99); Nucleated Red Blood Cells % 0 %; Platelet Count 317 K/mm3 (142-424); Red Blood Count 4.73 M/mm3 (4.20-5.40); Red Cell Distribution Width-SD 40.3 fL; White Blood Count 6.9 K/mm3 (4.8-10.8)
[2025-11-15 11:48] LABS: Alanine Aminotransferase 86 U/L (12-78); Albumin Level 4.7 g/dl (3.5-5.0); Albumin/Globulin Ratio 1.5 (1.1-1.8); Alkaline Phosphatase 222 U/L (38-126); Anion Gap 16.3 mEq/L (5-15); Aspartate Amino Transferase 60 U/L (14-36); Bilirubin,Total 0.7 mg/dl (0.2-1.3); Blood Urea Nitrogen 16 mg/dl (7-17); Calcium 10.0 mg/dl (8.4-10.2); Carbon Dioxide 23 mmol/L (22.0-30.0); Chloride 102 mmol/L (98-107); Creatinine,Serum 0.90 mg/dl (0.52-1.04); Estimated Glomerular Filt Rate 70 ml/min (>60); GFR (African American) 85 ML/MIN (>60); Globulin 3.1 g/dL (1.3-3.2); Glucose 89 mg/dl (74-100); Potassium 4.3 mmoL/L (3.5-5.1); Sodium 137 mmol/L (136-145); Total Protein,Serum 7.8 g/dl (6.3-8.2)
--- OUTSIDE RECORDS SUMMARY | 2025-11-15 12:17 | XMS_ITS | Clinical Summary ---
Author Organization [facility] Address [address] [facility] [address] [place] [address] Care Team Providers Care Bench Patternmaker Metal Name Role Phone Tammi Edward APRN Primary Care Provider [phone] Allergies Active Allergy Reactions Criticality Noted Date Comments Lactose Intolerance (Gi) 06/28/2025 Medications cetirizine (ZyrTEC) 10 MG tablet Take by mouth. 0 Active cholecalciferol (Vitamin D-3) 25 MCG (1000 UT) capsule Take by mouth 1 (one) time each day. Active Symbicort 80-4.5 MCG/ACT inhaler 4 Active Bacillus Coagulans-Inuli n (Probiotic) 1-250 BILLION-MG capsule daily. Active triazolam (Halcion) 0.25 MG tablet 5 Active ondansetron (Zofran) 4 MG tablet Take 1 tablet by mouth every 8 (eight) hours if needed for nausea or vomiting. 20 tablet 5 Active desogestrel-eth inyl estradiol (Apri) 0.15-30 MG-MCG tablet Take 1 tablet by mouth in the morning. 84 tablet 1 5 Active Mounjaro 5 MG/0.5ML solution auto-injectorIn dications:Morbi d (severe) obesity due to excess calories INJECT 5 MG UNDER THE SKIN ONCE WEEKLY 2 mL 5 Active Tirzepatide (Mounjaro) 7.5 MG/0.5ML solution auto-injector INJECT 7.5 MG UNDER THE SKIN ONCE WEEKLY 2 mL 5 Active Tirzepatide 10 MG/0.5ML solution auto-injector Inject 10 mg under the skin 1 (one) time per week. 2 mL 5 Active sertraline (Zoloft) 100 MG tablet TAKE 1 TABLET BY MOUTH DAILY 90 tablet 5 Active sertraline (Zoloft) 100 MG tablet TAKE 1 TABLET BY MOUTH DAILY 90 tablet 5 10/30/20 25 Discontinued Tirzepatide-Edouard ght Management 7.5 MG/0.5ML solution auto-injector Inject 0.5 mL under the skin 1 (one) time per week. 2 mL 5 10/20/20 25 Discontinued Active Problems Problem Noted Date Diagnosed Date [...] Encounters Date Type Department Care Team Description 10/29/2025 Refill [facility] - Primary Care [address] [place] [address] Dr Pedro 1 [place] [address] Tammi Edward APRN 10/20/2025 Orders Only [facility] - Primary Care [address] [place] [address] Dr Pedro [address] [place] [address] Tammi Edward APRN 10/18/2025 Refill [facility] - Primary Care [address] [place] [address] Dr Pedro 1 [place] [address] Tammi Edward APRN 09/26/2025 Refill [facility] - [address] Pedro 1 [place] [address] Tammi Edward APRN Morbid (severe) obesity due to excess calories 09/18/2025 Orders Only [facility] - [address] Pedro 1 [place] [address] Tammi Edward APRN 09/17/2025 Refill [facility] - [address] Pedro 1 [place] [address] Tammi Edward APRN Morbid (severe) obesity due to excess calories 09/02/2025 Refill [facility] [address] Pedro [address] [place] [address] Emily Carbajal MD 08/31/2025 3:20 PM EDT Office Visit [facility] [address] Pedro [address] [place] [address] Tammi Edward APRN Morbid (severe) obesity due to excess calories (Primary Dx); Nausea 08/31/2025 Travel 08/25/2025 Telephone [facility] - [address] Pedro [address] [place] [address] Tammi Edward APRN 08/23/2025 Orders Only [facility] [address] Pedro [address] [place] [address] Tammi Edward APRN Other obesity due to excess calories (Primary Dx); BMI 45 to 49.9 (CMS/HCC) from Last 3 Months Immunizations Immunization Administration Dates Next Due Influenza MDCK, Quad PF (Flucelvax) 09/03/2021 Influenza, injectable, quadrivalent 07/31/2019 Influenza, quadrivalent PF ( fluarix, Afluria, Flulaval, Fluzone) 08/21/2020 Moderna COVID-19 MRNA Vaccin e 100 or 50mcg (Spikevax) 10/11/2021,01/25/2021,12/28/2020 Pfizer Bivalent ([id number] + Ba.4/ba.5) Covid-19 Vaccine 02/06/2023 Tdap 12/31/2012 Social History Tobacco Use Types Packs/Day Years Used Date Smoking Tobacco: Never Smokeless Tobacco: Never Tobacco Cessation:Counseling Given: Not Answered Alcohol Use Standard Drinks/Week Comments Yes 0 (1 standard drink = 0.6 oz pur e alcohol) [facility] Utilities Answer Date Recorded In [...] any time in the past 12 m [facility], were you homeless or living in a long-term (including now)? No 01/20/2025 Depression Answer Date Recorded PHQ-2 Total Score 2 01/20/2025 Interpersonal Safety Answer Date Record ed How often does anyone, inclu heike family and friends, physically hurt you? Never 01/20/2025 How often does anyone, inclu heike family and friends, threaten you with [...] Sign Reading Time Taken Comments Blood Pressure 106/64 08/31/2025 3:27 PM EDT Pulse 90 08/31/2025 3:27 PM EDT Temperature 36.6 C (97.8 F) 05/09/2025 1:33 PM EDT Respiratory Rate - - Oxygen Saturation 97% 08/31/2025 3:27 PM EDT Inhaled Oxygen Concentration - - Weight 117 kg (258 lb 12.8 oz) 08/31/2025 3:27 P M EDT Height 170.2 cm (5' 7 ) 08/31/2025 3:27 PM EDT Body Mass Index 40.53 08/31/2025 3:27 PM EDT Plan of Treatment Health Maintenance Due Date Last Done Comments HIV Screening 1987 Hepatitis B Screening 2005 Hepatitis A Vaccines (1 of 2 - Risk 2-dose series) 2006 Hepatitis B Vaccines (1 of 3 - 19+ 3-dose series) 2006 Pneumococcal Vaccine (1 of 2 - PCV) 2006 HPV Vaccines (1 - 3-dose SCDM series) 2014 DTaP/Tdap/Td Vaccines (2 - Td or Tdap) 12/31/2022 12/31/2012 Pap Smear 08/21/2023 08/21/2020 COVID-19 Vaccine ( season) 2025 02/06/2023, 10/11/2021, 01/25/2021, Additional history exists Influenza Vaccine (#1) 2025 , 09/10/2023, 08/29/2022, Additional history exists Cervical Cancer Screening 08/21/2025 HPV/Cotest 08/21/2025 08/21/2020, 08/19/2020 Lipid Panel 01/16/2030 01/16/2025, 01/28, 10/19/2023, Additional history exists Zoster Vaccines (1 of 2) 2037 Depression Risk Screening Completed 01/20/2025 SDOH Screening Completed 01/20/2025 Hepatitis C Screening Completed 07/04/2025 BMI Intervention Completed 08/31/2025, 08/2025, 04/11/2025, Additional history exists HIB Vaccines Aged Out No longer eligi [...] Procedure Name Priority Date/Time Associated Diagnosis Comments HEPATITIS PANEL, ACUTE WITH REFLEX TO CONFIRMATION Routine 07/04/2025 12:44 PM EDT LIPID PANEL Routine 01/16/2025 8:10 AM EST Morbid (severe) obesity due to excess calories (CMS/HCC) THINPREP TIS PAP W/REFL HOV RNA HR E6/E7, TMA Routine 08/21/2020 10:45 AM EDT from Last 3 Months or Most Recently Relevant to Health Maintenance Results * Hepatitis panel, acute (07/04/2025 12:44 PM EDT) HEP A IGM AB NONREACTIVE Nonreactive 07/04/2025 3:05 PM EDT [facility] Rem 2.0 Hepatitis B Surface Ag NONREACTIVE Nonreactive 07/04/2025 3:05 PM EDT [facility] Rem 2.0 Hep B Core IgM NONREACTIVE Nonreactive 07/04/2025 3:05 PM EDT [facility] Rem 2.0 Hep C Virus Ab NONREACTIVE Nonreactive 07/04/2025 3:05 PM EDT [facility] Rem 2.0 Blood Venous Draw / Unknown 07/04/2025 12:44 PM EDT 07/04/2025 2:25 PM EDT [facility] - 07/04/2025 3:05 PM EDT Performed by [facility], [address] [place] [address] Debi Rivera NP LAB BLOOD ORDERABLES Final Res ult Performing Organization Address [facility] Co de Phone Number [facility] [address] [place] [address], [facility] Rem 2.0 Pathology Department [address] [place] [address] * (ABNORMAL) Lipid panel (01/16/2025 8:10 AM [...] Performing Organization Information: Site ID: [id number] Name: [facility] Address: [address] [place] [id number] Director: Dr. David Stein Tammi Edward APRN LAB BLOOD ORDERABLES Final Res ult Performing Organization Address [facility] Co de Phone Number [facility] [address] [place] [address], * THINPREP TIS PAP W/REFL HOV RNA [...] been evaluated with computer assisted technology. [facility] FIELD AIDE COCO ROGERS(ASCP) CT Screening location: [address] [address] [facility] COMMENT: EXPLANATORY NOTE: The Pap is a [...] information. [facility] 08/21/2020 10:4 5 AM EDT Lindsey Alvarado RIPSAW OPERATOR LAB CYTOLOGY ORDERABLES Final Result [facility] [address] [place] [address], from Last 3 Months or Most Recently Relevant to Health Maintenance Insurance [employer] Care Teams Bench Patternmaker Metal Relationship Specialty Start Date End Date Tammi Edward APRN [address] [place] [address] LAKSHMI AMIN [address] [place] [id number] PCP - General Family Medicine 12/08/24
--- OUTSIDE RECORDS SUMMARY | 2025-11-15 12:17 | XMS_ITS | Encounter Summary ---
Author Organization [facility] Address [address] [place] [address] Care Team Providers Care Tearer Press Clipping Name Role Phone Tammi Edward APRN Primary Care Provider [phone] Reason for Visit * Reason Comments Med Refill Encounter Details Date Type Department Care Team (Late st Contact Info) Description 10/29/2025 Refill [facility] - Primary [facility] [address] [place] [address] Dr [address] [place] [address] Tammi Edward APRN [address] [place] [address] [address] [place] [address] Social History Tobacco Use Types Packs/Day Years Used Date Smoking Tobacco: Never Smokeless Tobacco: Never Alcohol Use Standard Drinks/Week Comments Yes 0 (1 standard drink = 0.6 oz pur e alcohol) [facility] Utilities Answer Date Recorded In the past 12 months has e electric, gas, oil, or water [employer] threatened to shut off services in your [...] time in the past 12 m [facility], were you homeless or living in a m[facility] (including now)? No 01/20/2025 Depression Answer Date [...] documented as of this encounter Care Teams Tearer Press Clipping Relationship Specialty Start Date End Date Tammi Edward APRN [address] [place] [address] [address]IN [address] [place] [id number] PCP - General Family Medicine 12/08/24 documented as of this encounter
--- OUTSIDE RECORDS SUMMARY | 2025-11-15 12:17 | XMS_ITS | Encounter Summary ---
Author Organization [facility] Address [address] [place] [address] Care Team Providers Care Cover Machine Operator Name Role Phone Tammi Edward APRN Primary Care Provider [phone] Encounter Details Date Type Department Care Team (Late st Contact Info) Description 08/25/2025 Telephone [facility] [address] [place] [address] Dr [address] [place] [address] Tammi Edward APRN [address] [place] [address] [address] [place] [address] Social History Tobacco Use Types Packs/Day Years Used Date Smoking Tobacco: Never Smokeless Tobacco: Never Alcohol Use Standard Drinks/Week Comments Yes 0 (1 standard drink = 0.6 oz pur e alcohol) [facility] Utilities Answer Date Recorded In the past [...] in the past 12 m [facility], were you homeless or living in a detention (including now)? No 01/20/2025 Depression Answer Date Recorded PHQ-2 Total Score 2 01/20/2025 Interpersonal Safety Answer Date Record ed How often does anyone, abelkajal burroughs family and friends, physically hurt you? [...] on file documented as of this encounter Miscellaneous Notes * Telephone Encounter - Alissa Lobo - 08/25/2025 11:00 AM EDT P/t did call to see if she could renew her Wegovy Rx. But P/t wants to know could she get 1mg P/t did schedule a appt but she did stated she needs her MED's today. [facility] [id number] - KIRK HARTMAN - [address] [place] [address] * Telephone Encounter - Alissa Lobo - 08/25/2025 10:29 AM EDT P/t did call stating that she would like for her Doctor to send off her prescription Please renew my Wegovy Rx. I did better this time on the 0.5 so we should be okay to move up in dose. documented in this encounter Plan of Treatment Not on file documented as of this encounter Visit Diagnoses Not on filedocumented in this encounter Additional Health Concerns Assessment Noted Time PHQ-9 Depression Total Score: 0 01/22/20 22 8:21 AM EST documented as of this encounter Care Teams Cover Machine Operator Relationship Specialty Start Date End Date Tammi Edward APRN [address] [place] [address] [address] [place] [id number] PCP - General Family Medicine 12/08/24 documented as of this encounter
--- OUTSIDE RECORDS SUMMARY | 2025-11-15 12:17 | XMS_ITS | Encounter Summary ---
Author Organization [facility] Address [address] [place] [address] Care Team Providers Care Water Supply Engineer Name Role Phone Tammi Edward APRN Primary Care Provider [phone] Reason for Visit * Reason Onset Date Comments Med Refill 09/17/2025 Encounter Details Date Type Department Care Team (Late st Contact Info) Description 09/17/2025 Refill [facility] Primary [facility] [address] [place] [address] Dr [address] [place] [address] Tammi Edward APRN [address] [place] [address] [address] AMIN [address] [place] [address] Morbid (severe) obesity due to excess calories Social History Tobacco Use Types Packs/Day Years Used Date Smoking Tobacco: Never Smokeless Tobacco: Never Alcohol Use Standard Drinks/Week Comments Yes 0 (1 standard drink = 0.6 oz pur e alcohol) [facility] Utilities Answer Date Recorded In the past 12 months has [employer], [employer], oil, or water [employer] threatened to shut off services in your [...] any time in the past 12 m [facility], were you homeless or living in a fci (including now)? No 01/20/2025 Depression Answer Date [...] as of this encounter Visit Diagnoses Diagnosis Morbid (severe) obesity due to excess calories documented in this encounter Additional Health Concerns Assessment Noted Time PHQ-9 Depression Total Score: 0 01/22/20 22 8:21 AM EST documented as of this encounter Care Teams Water Supply Engineer Relationship Specialty Start Date End Date Tammi Edward APRN [address] [place] [address] [address] [place] [phone] PCP - General Family Medicine 12/08/24 documented as of this encounter
--- OUTSIDE RECORDS SUMMARY | 2025-11-15 12:18 | XMS_ITS | Encounter Summary ---
Author Organization [facility] Address [address] [place] [address] Care Team Providers Care Ice Cream Dispenser Name Role Phone Tammi Edward APRN Primary Care Provider [phone] Reason for Visit * Reason Comments Med Refill Encounter Details Date Type Department Care Team (Late st Contact Info) Description 09/26/2025 Refill [facility] - Primary [facility] [address] [place] [address] Dr [address] [place] [address] Tammi Edward APRN [address] [place] [address] [address]IN [address] [place] [address] Morbid (severe) obesity due to excess calories Social History Tobacco Use Types Packs/Day Years Used Date Smoking Tobacco: Never Smokeless Tobacco: Never Alcohol Use Standard Drinks/Week Comments Yes 0 (1 standard drink = 0.6 oz pur e alcohol) [facility] Utilities Answer Date Recorded In the past 12 months has [facility] [place], gas, oil, or water [employer] threatened to shut off services in your [...] any time in the past 12 m [facility], were you homeless or living in a longterm (including now)? No 01/20/2025 Depression Answer Date [...] documented as of this encounter Care Teams Ice Cream Dispenser Relationship Specialty Start Date End Date Tammi Edward APRN [address] [place] [address] [address] [place] [id number] PCP - General Family Medicine 12/08/24 documented as of this encounter
--- OUTSIDE RECORDS SUMMARY | 2025-11-15 12:18 | XMS_ITS | Encounter Summary ---
Author Organization [facility] Address [address] [place] [address] Care Team Providers Care Medical Legal Investigator Name Role Phone Tammi Edward APRN Primary Care Provider [phone] Encounter Details Date Type Department Care Team (Late st Contact Info) Description 09/18/2025 Orders Only [facility] - Primary [facility] [address] [place] [address] Dr [address] [place] [address] Tammi Edward APRN [address] [place] [address] [address] [place] [address] Social History Tobacco Use Types Packs/Day Years Used Date Smoking Tobacco: Never Smokeless Tobacco: Never Alcohol Use Standard Drinks/Week Comments Yes 0 (1 standard drink = 0.6 oz pur e alcohol) [facility] Utilities Answer Date Recorded In [...] were you homeless or living in a senior living (including now)? No 01/20/2025 Depression Answer Date [...] documented as of this encounter Care Teams Medical Legal Investigator Relationship Specialty Start Date End Date Tammi Edward APRN [address] [place] [address] [address] [place] [address] PCP - General Family Medicine 12/08/24 documented as of this encounter
--- OUTSIDE RECORDS SUMMARY | 2025-11-15 12:18 | XMS_ITS | Encounter Summary ---
Author Organization [facility] Address [address] [place] [address] Care Team Providers Care Food Technologist Name Role Phone Tammi Edward APRN Primary Care Provider [phone] Encounter Details Date Type Department Care Team (Late st Contact Info) Description 10/20/2025 Orders Only [facility] [address] [place] [address] Dr [address] [place] [address] Tammi Edward APRN [address] [place] [address] [address]IN [address] [place] [address] Social History Tobacco Use Types Packs/Day Years Used Date Smoking Tobacco: Never Smokeless Tobacco: Never Alcohol Use Standard Drinks/Week Comments Yes 0 (1 standard drink = 0.6 oz pur e alcohol) [facility] Utilities Answer Date Recorded In the [...] time in the past 12 m [facility], were you homeless or living in a senior care (including now)? No 01/20/2025 Depression Answer Date [...] documented as of this encounter Care Teams Food Technologist Relationship Specialty Start Date End Date Tammi Edward APRN [address] [place] [address] [address] [place] [address] PCP - General Family Medicine 12/08/24 documented as of this encounter
--- OUTSIDE RECORDS SUMMARY | 2025-11-15 12:18 | XMS_ITS | Encounter Summary ---
Author Organization [facility] Address [address] [place] [address] Care Team Providers Care Group Director Name Role Phone Tammi Edward APRN Primary Care Provider [phone] Reason for Visit * Reason Comments Med Refill Encounter Details Date Type Department Care Team (Late st Contact Info) Description 10/18/2025 Refill [facility] - Primary Care [address] [place] [address] Dr [address] [place] [address] Tammi Edward APRN [address] [place] [address] [address]IN [address] [place] [address] Social History Tobacco Use Types Packs/Day Years Used Date Smoking Tobacco: Never Smokeless Tobacco: Never Alcohol Use Standard Drinks/Week Comments Yes 0 (1 standard drink = 0.6 oz pur e alcohol) [facility] Utilities Answer Date Recorded In the past 12 months has e electric, gas, oil, or water [employer] threatened to shut off services in your [...] time in the past 12 m [facility], were you homeless or living in [...] documented as of this encounter Care Teams Group Director Relationship Specialty Start Date End Date Tammi Edward APRN [address] [place] [address] [address] [place] [phone] PCP - General Family Medicine 12/08/24 documented as of this encounter
[2025-11-17 23:09] LABS: ALT (SGPT) P5P 84 IU/L (0-40); AST (SGOT) P5P 57 IU/L (0-40); Alpha 2-Macroglobulins, Qn 179 mg/dL (110-276); Bilirubin, Total 0.3 mg/dL (0.0-1.2); Cholesterol, Total 261 mg/dL (100-199); GGT 284 IU/L (0-60); Glucose 82 mg/dL (70-99); Triglycerides 216 mg/dL (0-149)
== END 2025-11-15 23:59 | disposition home or self-care (01) ==
LOC: LAB 10:34
PROVIDERS: Visit Provider Nurse Practitioner Family
DX: R74.8 Abnormal levels of other serum enzymes (principal)
CPT/HCPCS: 36415; 80053; 80074; 82172; 82247; 82465; 82947; 82977; 83010; 83521; 84450; 84460; 84478; 85025